=== PATIENT | male | born 1965 | race Caucasian/White ===

== ENCOUNTER 2016-10-30 09:05 | Emergency (ER) | payer MEDICARE ==
[2016-10-30 09:20] VITALS: BP 111/74
--- NOTE | 2016-10-30 10:09 | UC ---
Ear Complaint HPI - HPI Summary HPI Summary: Right ear pain, PND, and "white" productive cough for one week. Subjective fever three days ago. Patient is unemployed. PCP Fide MOSQUERA. [ End ] - History of Current Complaint Chief Complaint: UCRespiratory Stated Complaint: EAR PAIN Time Seen by Provider: 10/30/16 09:57 Hx Obtained From: Patient Onset/Duration: Gradual Onset Severity Initially: Mild Severity Currently: Moderate Associated Signs/Symptoms: Positive: URI Symptoms - Allergies/Home Medications Allergies/Adverse Reactions: Allergies Allergy/AdvReac Type Severity Reaction Status Date / Time No Known Allergies Allergy Verified 10/30/16 09:18 PMH/Surg Hx/FS Hx/Imm Hx Previously Healthy: Yes Endocrine History Of: Denies: Diabetes Cardiovascular History Of: Denies: Hypertension, Pacemaker/ICD Respiratory History Of: Denies: Asthma GI/ History Of: Denies: Gastroesophageal Reflux, Renal Disease Neurological History Of: Denies: TIA Psychological History Of: Denies: Depression - Surgical History Surgical History: Yes Surgery Procedure, Year, and Place: Lt KNEE. Rt WRIST - Family History Known Family History: Positive: Seizure Disorder Negative: Cardiac Disease, Hypertension, Diabetes - Social History Occupation: Employed Full-time Lives: With Family Alcohol Use: Occasionally Substance Use Type: None Smoking Status (MU): Former Smoker Type: Smokeless Tobacco Amount Used/How Often: 1/3 can per day Have You Smoked in the Last Year: Yes When Did the Patient Quit Smoking/Using Tobacco: ~08/01/16 - Immunization History Most Recent Influenza Vaccination: Not the 2015/2016 Season Review of Systems Constitutional: Negative Skin: Negative Eyes: Negative ENT: Sore Throat, Ear Ache, Nasal Discharge Respiratory: Negative Cardiovascular: Negative Gastrointestinal: Negative Genitourinary: Negative Motor: Negative Neurovascular: Negative Musculoskeletal: Negative Neurological: Negative Psychological: Negative All Other Systems Reviewed And Are Negative: Yes Physical Exam Triage Information Reviewed: Yes Appearance: Well-Appearing, No Pain Distress, Well-Nourished Vital Signs: Initial Vital Signs Temp 98.3 F 10/30/16 09:16 Pulse 62 10/30/16 09:16 Resp 16 10/30/16 09:16 BP 111/74 10/30/16 09:16 Pulse Ox 98 10/30/16 09:16 Vital Signs Reviewed: Yes Eye Exam: Normal ENT Exam: Normal ENT: Positive: Hearing grossly normal, Pharynx normal, Nasal congestion, Nasal drainage, TM bulging - right, TM dull - right. Negative: Pharyngeal erythema, TM red, Tonsillar swelling, Tonsillar exudate Dental Exam: Normal Neck exam: Normal Neck: Positive: 1 Respiratory Exam: Normal Cardiovascular Exam: Normal Abdominal Exam: Normal Musculoskeletal Exam: Normal Neurological Exam: Normal Psychological Exam: Normal Skin Exam: Normal Ear Complaint Course/Dx - Differential Dx/Diagnosis Differential Diagnosis/HQI/PQRI: Bronchitis, Otitis Externa, Otitis Media, Perforated TM Provider Diagnoses: Serous Otitis Media Right ear Discharge - Discharge Plan Condition: Good Disposition: HOME Prescriptions: Amoxicillin (*) [Amoxicillin 875 MG (*)] 875 mg PO BID #20 tab Patient Education Materials: Otitis Media (ED) Referrals: Deshawn Wheatley MD [Primary Care Provider] - 3 Days (if needed ) Additional Instructions: As we discussed please start Claritin in the AM with Flonase and consider Benadryl in the night time and if your symptoms worsen then please start amoxicillin.
== END 2016-10-30 10:20 | disposition home or self-care (01) ==
LOC: UCCORT 09:05
DX: H65.91 Unspecified nonsuppurative otitis media, right ear (principal); Z87.891 Personal history of nicotine dependence
CPT/HCPCS: 99212; G0463

== ENCOUNTER 2017-04-26 07:06 | Emergency (ER) | payer MEDICARE ==
[2017-04-26 07:18] VITALS: BP 129/78
--- NOTE | 2017-04-26 07:29 | UC ---
Throat Pain/Nasal Duy HPI - HPI Summary HPI Summary: sore throat x 2 days no fever, no chills, + cough, nasal congestion right ear pain x 2 weeks, no discharge, no hearing loss - History of Current Complaint Chief Complaint: UCRespiratory Stated Complaint: SORE THROAT BILATERAL EAR COMPLAINT Time Seen by Provider: 04/26/17 07:23 Hx Obtained From: Patient Onset/Duration: Gradual Onset, Lasting Days - 2, Still Present Severity: Moderate Cough: Nonproductive Associated Signs & Symptoms: Positive: Nasal Discharge. Negative: Dysphagia, FB Sensation, Drooling, Wheezing, Hoarseness, Sinus Discomfort, Fever, Rash - Allergies/Home Medications Allergies/Adverse Reactions: Allergies Allergy/AdvReac Type Severity Reaction Status Date / Time No Known Allergies Allergy Verified 04/26/17 07:13 Home Medications: Home Medications Cough Syrup Med PRN 04/26/17 [History] PMH/Surg Hx/FS Hx/Imm Hx Previously Healthy: Yes - Surgical History Surgical History: Yes Surgery Procedure, Year, and Place: Lt KNEE. Rt WRIST - Family History Known Family History: Positive: Seizure Disorder Negative: Cardiac Disease, Hypertension, Diabetes - Social History Alcohol Use: Occasionally Substance Use Type: None Smoking Status (MU): Former Smoker Type: Smokeless Tobacco Amount Used/How Often: 1/3 can per day Have You Smoked in the Last Year: Yes When Did the Patient Quit Smoking/Using Tobacco: ~08/01/16 - Immunization History Most Recent Influenza Vaccination: Not the 2015/2016 Season Review of Systems Constitutional: Negative Skin: Negative Eyes: Negative ENT: Sore Throat, Ear Ache Respiratory: Cough Cardiovascular: Negative Gastrointestinal: Negative Genitourinary: Negative Is Patient Immunocompromised?: No All Other Systems Reviewed And Are Negative: Yes Physical Exam Triage Information Reviewed: Yes Appearance: Well-Appearing, No Pain Distress, Well-Nourished Vital Signs: Initial Vital Signs Temp 97.5 F 04/26/17 07:14 Pulse 62 04/26/17 07:14 Resp 16 04/26/17 07:14 BP 129/78 04/26/17 07:14 Pulse Ox 99 04/26/17 07:14 Vital Signs Reviewed: Yes Eyes: Positive: Conjunctiva Clear ENT: Positive: Normal ENT inspection, Hearing grossly normal, Pharynx normal, Pharyngeal erythema, TMs normal. Negative: Nasal congestion, Nasal drainage, TM bulging, TM dull, TM red Neck exam: Normal Neck: Positive: Supple Respiratory: Positive: Chest non-tender, Lungs clear, Normal breath sounds Cardiovascular: Positive: RRR, No Murmur, Pulses Normal Skin Exam: Normal Throat Pain/Nasal Course/Dx - Differential Dx/Diagnosis Provider Diagnoses: viral pharyngitis. otalgia Discharge - Discharge Plan Condition: Stable Disposition: HOME Patient Education Materials: Pharyngitis (ED), Earache (ED) Referrals: Deshawn Wheatley MD [Primary Care Provider] - If Needed Additional Instructions: viral illness, no need for abx cont. with rest, increase fluid, Tylenol as needed for pain
== END 2017-04-26 07:34 | disposition home or self-care (01) ==
LOC: UCCORT 07:06
DX: J02.9 Acute pharyngitis, unspecified (principal); H92.03 Otalgia, bilateral; Z87.891 Personal history of nicotine dependence
CPT/HCPCS: 99211; G0463

== ENCOUNTER 2018-03-11 08:52 | Emergency (ER) | payer MEDICARE ==
--- OUTSIDE RECORDS SUMMARY | 2018-03-11 09:06 | XMS REPORT ---
:1965 External Reference #:[id number] Author Organization [employer] Address [address] [place] [address] [place] [address] Phone [phone] Care Team Providers Name Role Phone Deshawn Wheatley MD Primary Care Physician Unavailable Payers Type Date Identification Numbers Payment Provider Subscriber Medicare Primary Policy Number: [id number] Medicare Matthieu Matt PayID: [id number] [address] [place] [address] Commercial Expires: 2000 Policy Number: [id number] Storm Matt Group Number: [id number] [address] PayID: [id number] [place] [address] Workers Compensation Onset: 2015 Policy Number: [facility] Matthieu Matt [id number] 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 Active Onset: 01/23/2016 Complex partial seizure + impairment Caroline Oliveira M.D. Active consciousness at onset Family History Date Family Member(s) Problem(s) Comments General Prostate Cancer General Heart Disease Father Heart Disease Father Prostate Cancer Social History Type Date Description Comments Marital Status Single Lives With Girlfriend Occupation Disabled Cigarette Use Never Smoked Cigarettes ETOH Use Occasionally consumes alcohol Recreational Drug Use Denies Drug Use Smoking Patient has never smoked Daily Caffeine Consumes on average 2 cups of regular coffee per day Daily Caffeine Consumes on average 24oz of iced tea per day Daily Caffeine consumes 2oz of chocolate per day Exercise Type/Frequency Walks daily Allergies, Adverse Reactions, Alerts Date Description Reaction Status Severity Comments 06/27/2013 NKDA active Medications Medication Date Status Form Strength Qnty SIG Indications Ordering Provider Keppra 12/31 Active Tablets 500mg 30tab 1 tab by Filiberto /2015 s quintin Johnson M.D. once a day Phenytoin Sodium 11/20 Hx Capsules 100mg 270ca 4 cap by G40.909 Caroline Gonzalez ps mouth Roxanne, - every M.D. 01/21 No Active 10/23 Hx Unknown Medications /2015 - 11/20 Propranolol HCL 06/19 Hx Tablets 20mg 90tab 1 tab by Caroline Diaz /2011 s mouth 2-3 Roxanne, - times M.D. 10/22 as directed Primidone 06/19 Hx Tablets 50mg 60tab 1-2 tabs Caroline Diaz s by quintin Oliveira, - every day M.D. 10/22 at bedtime as directed Cyclobenzaprine Hx Tablets 10mg 30tab one po Unknown HCL /0000 s tid prn - spasm 10/22 Medications Administered in Office Medication Date Status Form Strength Qnty SIG Indications Ordering Provider Injection 12/06 Administered Injection Ze SLluvia Onabotulinumtoxin /2013 Lien Spence, 1 Unit M.D. Injection 08/30 Administered Injection Ze Zee Onabotulinumtoxin /2013 Lien Spence, 1 Unit M.D. Injection 03/22 Administered Injection Ze SLluvia Onabotulinumtoxin /2012 [place], A, 1 Unit M.D. Injection 12/07 Administered Injection Ze Zee Onabotulinumtoxin /2012 Lien Spence, 1 Unit M.DLluvia Injection 09/14 Administered Injection Ze BarrosLluvia Onabotulinumtoxin /2012 Lien Spence, 1 Unit M.D. Vital Signs Date Vital Result Comment 02/22/2018 Height 66 inches 5'6" Weight 188.00 lb Heart Rate 63 /min BP Systolic 128 mmHg BP Diastolic 84 mmHg Respiratory Rate 16 /min Pain Level 0 O2 % BldC Oximetry 96 % BMI (Body Mass Index) 30.3 kg/m2 02/11/2017 Height 66 inches 5'6" Weight 200.00 lb Heart Rate 95 /min BP Systolic 124 mmHg BP Diastolic 70 mmHg Respiratory Rate 17 /min O2 % BldC Oximetry 97 % ra BMI (Body Mass Index) 32.3 kg/m2 08/13/2016 Heart Rate 66 /min BP Systolic Sitting 118 mmHg BP Diastolic Sitting 80 mmHg Respiratory Rate 20 /min Pain Level 0 O2 % BldC Oximetry 98 % 01/23/2016 Height 66 inches 5'6" Weight 180.00 lb Heart Rate 64 /min BP Systolic Sitting 130 mmHg BP Diastolic Sitting 88 mmHg Respiratory Rate 14 /min BMI (Body Mass Index) 29.0 kg/m2 11/21/2015 Height 66 inches 5'6" Weight 189.00 lb Heart Rate 60 /min BP Systolic Sitting 118 mmHg BP Diastolic Sitting 86 mmHg Respiratory Rate 14 /min BMI (Body Mass Index) 30.5 kg/m2 11/10/2015 Height 66 inches 5'6" Weight 189.00 lb Heart Rate 72 /min BP Systolic Sitting 142 mmHg BP Diastolic Sitting 82 mmHg Respiratory Rate 14 /min BMI (Body Mass Index) 30.5 kg/m2 10/24/2015 Height 66 inches 5'6" Weight 189.00 lb Heart Rate 64 /min BP Systolic Sitting 124 mmHg BP Diastolic Sitting 80 mmHg Respiratory Rate 14 /min BMI (Body Mass Index) 30.5 kg/m2 03/25/2014 Weight 163.00 lb Heart Rate 60 /min BP Systolic Sitting 116 mmHg BP Diastolic Sitting 80 mmHg Respiratory Rate 12 /min Results Test Date Test Result H/L Range Note CBC Auto Diff 08/13/2016 White Blood Count 5.6 10^3/uL 3.5-10.8 Red Blood Count 5.06 10^6/uL 4.0-5.4 Hemoglobin 16.2 g/dL 14.0-18.0 Hematocrit 48 % 42-52 Mean Corpuscular Volume 94 fL 80-94 Mean Corpuscular Hemoglobin 32 pg High 27-31 Mean Corpuscular HGB Conc 34 g/dL 31-36 Red Cell Distribution Width 12 % 10.5-15 Platelet Count 166 10^3/uL 150-450 Mean Platelet Volume 8 um3 7.4-10.4 Abs Neutrophils 3.1 10^3/uL 1.5-7.7 Abs Lymphocytes 2.0 10^3/uL 1.0-4.8 Abs Monocytes 0.3 10^3/uL 0-0.8 Abs Eosinophils 0.1 10^3/uL 0-0.6 Abs Basophils 0 10^3/uL 0-0.2 Abs Nucleated RBC 0 10^3/uL Granulocyte % 56.1 % 38-83 Lymphocyte % 35.8 % 25-47 Monocyte % 5.7 % 1-9 Eosinophil % 2.1 % 0-6 Basophil % 0.3 % 0-2 Nucleated Red Blood Cells % 0.1 Comp Metabolic Panel 08/13/2016 Sodium 137 mmol/L 133-145 Potassium 4.5 mmol/L 3.5-5.0 Chloride 102 mmol/L 101-111 Co2 Carbon Dioxide 30 mmol/L 22-32 Anion Gap 5 mmol/L 2-11 Glucose 109 mg/dL High 70-100 Blood Urea Nitrogen 21 mg/dL 6-24 Creatinine 1.02 mg/dL 0.67-1.17 BUN/Creatinine Ratio 20.6 High 8-20 Calcium 9.4 mg/dL 8.6-10.3 Total Protein 6.8 g/dL 6.4-8.9 Albumin 4.4 g/dL 3.2-5.2 Globulin 2.4 g/dL 2-4 Albumin/Globulin Ratio 1.8 1-3 Total Bilirubin 0.90 mg/dL 0.2-1.0 Alkaline Phosphatase 41 U/L 34-104 Alt 33 U/L 7-52 Ast 21 U/L 13-39 Egfr Non- 76.4 >60 Egfr 98.3 >60 1 Laboratory test finding 12/26/2015 Phenytoin (Dilantin) 10.1 g/mL 10- 20 CBC W/Auto Diff 12/11/2015 White Blood Count 4.6 10^3/uL 3.5-10.8 Red Blood Count 4.69 10^6/uL 4.0-5.4 Hemoglobin 15.4 g/dL 14.0-18.0 Hematocrit 44 % 42-52 Mean Corpuscular Volume 95 fL High 80-94 Mean Corpuscular Hemoglobin 33 pg High 27-31 Mean Corpuscular HGB Conc 35 g/dL 31-36 Red Cell Distribution Width 13 % 10.5-15 Platelet Count 171 10^3/uL 150-450 Mean Platelet Volume 8 um3 7.4-10.4 Abs Neutrophils 2.7 10^3/uL 1.5-7.7 Abs Lymphocytes 1.6 10^3/uL 1.0-4.8 Abs Monocytes 0.3 10^3/uL 0-0.8 Abs Eosinophils 0 10^3/uL 0-0.6 Abs Basophils 0 10^3/uL 0-0.2 Abs Nucleated RBC 0 10^3/uL Granulocyte % 57.7 % 38-83 Lymphocyte % 34.2 % 25-47 Monocyte % 6.4 % 1-9 Eosinophil % 0.8 % 0-6 Basophil % 0.9 % 0-2 Nucleated Red Blood Cells % 0 CMP Panel 12/11/2015 Sodium 137 mmol/L 133-145 Potassium 4.6 mmol/L 3.5-5.0 Chloride 103 mmol/L 101-111 Co2 Carbon Dioxide 29 mmol/L 22-32 Anion Gap 5 mmol/L 2-11 Glucose 85 mg/dL 70-100 Blood Urea Nitrogen 16 mg/dL 6-24 Creatinine 0.89 mg/dL 0.67-1.17 BUN/Creatinine Ratio 18.0 8-20 Calcium 9.5 mg/dL 8.6-10.3 Total Protein 7.1 g/dL 6.4-8.9 Albumin 4.6 g/dL 3.2-5.2 Globulin 2.5 g/dL 2-4 Albumin/Globulin Ratio 1.8 1-3 Total Bilirubin 0.40 mg/dL 0.2-1.0 Alkaline Phosphatase 48 U/L 34-104 Alt 24 U/L 7-52 Ast 23 U/L 13-39 Egfr Non- 89.8 >60 Egfr 115.4 >60 2 Laboratory test finding 12/11/2015 Phenytoin (Dilantin) 4.0 g/mL Low 10- 20 1 Because ethnic data is not always readily available, this report includes an eGFR for both -Americans and non- Americans. The National Kidney Disease Education Program (NKDEP) does not endorse the use of the MDRD equation for patients that are not between the ages of 18 and 70, are , have extremes of body size, muscle mass, or nutritional status, or are non- or non-. According to the National Kidney Foundation, irrespective of diagnosis, the stage of the disease is based on the level of kidney function: Stage Description GFR(mL/min/1.73 m(2)) 1 Kidney damage with normal or decreased GFR 90 2 Kidney damage with mild decrease in GFR 60-89 3 Moderate decrease in GFR 30-59 4 Severe decrease in GFR 15-29 5 Kidney failure <15 (or dialysis) 2 Because ethnic data is not always readily available, this report includes an eGFR for both -Americans and non- Americans. The National Kidney Disease Education Program (NKDEP) does not endorse the use of the MDRD equation for patients that are not between the ages of 18 and 70, are , have extremes of body size, muscle mass, or nutritional status, or are non- or non-. According to the National Kidney Foundation, irrespective of diagnosis, the stage of the disease is based on the level of kidney function: Stage Description GFR(mL/min/1.73 m(2)) 1 Kidney damage with normal or decreased GFR 90 2 Kidney damage with mild decrease in GFR 60-89 3 Moderate decrease in GFR 30-59 4 Severe decrease in GFR 15-29 5 Kidney failure <15 (or dialysis) Procedures Date CPT Code Description Status 11/13/2015 20649 Electroencephalogram (EEG) Extended Monitoring 41-60 Completed Minutes 11/03/2015 74403 EEG Recording Awake & Drowsy Completed 12/06/2013 09246 Chemodenervation Of Neck Muscles Excluding Larynx, Completed Unilateral 08/30/2013 65856 Chemodenervation Of Neck Muscles Excluding Larynx, Completed Unilateral 03/22/2013 53132 Destruction W/Neurolytic Agent,Neck Muscles Completed 12/07/2012 14280 Destruction W/Neurolytic Agent,Neck Muscles Completed 09/14/2012 95505 Destruction W/Neurolytic Agent,Neck Muscles Completed Encounters Type Date Location Provider CPT E/M Dx Office Visit 02/11/2017 Aeysha Oliveira, 43433 G40.209 10:00a [facility] Of M[facility]. [employer] Office Visit 08/13/2016 Ayesha Oliveira, 98404 G40.209 8:45a [facility]rologic [facility] Of M[facility]D. [employer] Office Visit 11/21/2015 Ayesha Oliveira, 71042 G40.909 10:00a [facility] Of M[facility]. [employer] Office [place]/10[place] 43166 G24.3 10:00a Neurologic Serv Of M.D. [employer] R55 Office Visit 10/24/2015 11:30a Ayesha Oliveira, 50888 G24.3 Neurolog[facility] Of [employer] M.D. R55 Office Visit 03/25/2014 9:45a Ayesha Oliveira, 47347 333.83 Neurologic [facility] Of [employer] M.D. 333.1 Office Visit 09/17/2013 9:45a Nirav/Agueda Oliveira, 06197 333.1 Neurologic Serv Of [employer] M.D. 333.83 Office Visit 07/11/2013 3:40p Neurosurgery Services Melvin Yuan, 81938 721.0 Of [employer] AT [facility] 722.10 Office Visit 06/27/2013 10:00a Neurosurgery Services Melvin Yuan, 39678 722.71 Of [employer] AT [facility] 722.10 Office Visit 05/09/2013 4:00p Ayesha Oliveira, 82842 333.83 Neurologic Serv Of [employer] M.D. 333.1 Office Visit 12/07/2012 2:00p Ayesha Spence 47250 333.83 Neurologic Serv Of [employer] M.D. Office Visit 12/04/2012 2:15p Ayesha Oliveira, 63299 333.83 Neurologic Serv Of [employer] M.D. 333.1 Office Visit 10/12/2012 12:00p Ayesha Barros. Bebe, 73928 333.83 Neurologic Serv Of [employer] M.D. Office Visit 10/02/2012 10:00a [place]/Agueda Oliveira, 65407 333.83 Neurologic Serv Of [employer] M.D. Office Visit 09/14/2012 3:00p [place]/Agueda Spence, 74019 333.83 Neurologic Serv Of [employer] M.D. Office Visit 07/06/2012 2:45p [place]/Agueda Spence, 47694 333.83 Neurologic Serv Of [employer] M.D. Office Visit 06/19/2012 2:15p [place]/Agueda Oliveira, 60100 333.1 Neurologic Serv Of [employer] M.D. Office Visit 03/30/2012 1:00p [place]/Agueda Oliveira, 48747 333.1 Neurologic Serv Of [employer] M.D. 333.83 Plan of Care Future Appointment(s):02/28/2019 8:30 am - Filiberto Johnson M.D. at [facility]02/22/2018 - Filiberto Johnson M.D.G40.209 Local- rel symptc epi w cmplx prt seiz,not ntrct,w/o stat [id number] Syncope and collapse
[2018-03-11 09:12] VITALS: BP 127/81
--- NOTE | 2018-03-11 09:16 | UC ---
Lower Extremity/Ankle HPI - HPI Summary HPI Summary: kick starter on 4 reeves "kicked back" into his R foot yesterday causing pain and swelling. - History of Current Complaint Stated Complaint: LEFT FOOT INJURY 1 DAY Time Seen by Provider: 03/11/18 09:10 Hx Obtained From: Patient Onset/Duration: Sudden Onset Aggravating Factor(s): Standing, Ambulation Alleviating Factor(s): Nothing Able to Bear Weight: Yes - partial - Allergies/Home Medications Allergies/Adverse Reactions: Allergies Allergy/AdvReac Type Severity Reaction Status Date / Time No Known Allergies Allergy Verified 03/11/18 09:12 PMH/Surg Hx/FS Hx/Imm Hx - Additional Past Medical History Additional PMH: tremor Neurological History: Seizures - Surgical History Surgical History: Yes Surgery Procedure, Year, and Place: Lt KNEE. Rt WRIST - Family History Known Family History: Positive: Seizure Disorder Negative: Cardiac Disease, Hypertension, Diabetes - Social History Occupation: Disabled Lives: With Family Alcohol Use: Occasionally Substance Use Type: None Smoking Status (MU): Former Smoker Type: Smokeless Tobacco Amount Used/How Often: 1/3 can per day Have You Smoked in the Last Year: Yes When Did the Patient Quit Smoking/Using Tobacco: ~08/01/16 - Immunization History Most Recent Influenza Vaccination: Not the 2015/2016 Season Vaccination Up to Date: Yes Review of Systems Constitutional: Negative Skin: Negative Eyes: Negative ENT: Negative Respiratory: Negative Cardiovascular: Negative Gastrointestinal: Negative Genitourinary: Negative Motor: Negative Neurovascular: Negative Musculoskeletal: Other: - pain/swelling/bruising R foot Neurological: Negative Psychological: Negative Is Patient Immunocompromised?: No All Other Systems Reviewed And Are Negative: Yes Physical Exam Triage Information Reviewed: Yes Appearance: Well-Appearing Vital Signs Reviewed: Yes Eyes: Positive: Conjunctiva Clear ENT: Positive: Normal ENT inspection Neck: Positive: Supple Respiratory: Positive: Lungs clear, Normal breath sounds Cardiovascular: Positive: RRR, No Murmur Abdomen Description: Positive: Nontender, No Organomegaly, Soft Bowel Sounds: Positive: Present Musculoskeletal: Positive: Other: - RLE: hip. knee, achilles and ankle are atraumatic. Arch and plantar R fott is swollen, bruised and tender. Toes have full s/v/m function. Neurological: Positive: Alert, Other: - fine tremor Psychological: Positive: Age Appropriate Behavior Skin Exam: Normal Diagnostics - Radiology No standard instances Radiology Interpretation Completed By: Radiologist - IMPRESSION: NO FRACTURE IS SEEN, IF THE PATIENT'S SYMPTOMS PERSIST RECOMMEND FOLLOW-UP IMAGING. Lower Extremity Course/Dx - Course Course Of Treatment: no concern for fx, dislocation or infection. bruising arch/ planter foot and plantar fascia injury. will kranthi, crutch and refer to orthopedics - Differential Dx/Diagnosis Provider Diagnoses: Contusion arch and plantar fascia R foot. Plantar fasciitis R foot from trauma Discharge - Sign-Out/Discharge Documenting (check all that apply): Patient Departure - Discharge Plan Condition: Stable Disposition: HOME Prescriptions: Naproxen [Naprosyn 500 mg tab] 500 mg PO BID #10 tablet Patient Education Materials: Plantar Fasciitis (ED), Foot Contusion (ED) Referrals: Deshawn Wheatley MD [Primary Care Provider] - If Needed Mele Juarez MD [Medical Doctor] - As Soon As Possible Additional Instructions: KRANTHI AND CRUTCHES UNTIL CLEARED - Billing Disposition and Condition Condition: STABLE Disposition: Home
--- NOTE | 2018-03-11 10:20 | RAD ---
INDICATION: Right foot injury. TECHNIQUE: 3 views of the right foot were obtained. FINDINGS: There is medial soft tissue swelling. The bones are normal alignment. No fracture is seen. 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 IMPRESSION: NO FRACTURE IS SEEN, IF THE PATIENT'S SYMPTOMS PERSIST RECOMMEND FOLLOW-UP IMAGING.
== END 2018-03-11 10:55 | disposition home or self-care (01) ==
LOC: UCCORT 08:52
DX: S90.31XA Contusion of right foot, initial encounter (principal); W31.89XA Contact with other specified machinery, initial encounter; Y93.89 Activity, other specified; Y92.9 Unspecified place or not applicable; Z87.891 Personal history of nicotine dependence
CPT/HCPCS: 99213; G0463

== ENCOUNTER 2019-02-19 08:25 | Emergency (ER) | payer MEDICARE, OTHER ==
[2019-02-19 08:45] VITALS: BP 122/86
--- NOTE | 2019-02-19 08:57 | UC ---
Skin Complaint HPI - HPI Summary HPI Summary: Pt presents with c/o sudden onset fo painful pustular rash that encircles his distal neck and on left lower medial extremity. Pt thought he had a "heat rash " and place d cool compress on the rash over the weekend but he states that rash worsened after that. - History of Current Complaint Chief Complaint: [facility]CS[facility] Time Seen by Provider: 02/19/19 08:35 Stated Complaint: SKIN CONCERN Hx Obtained From: Patient Onset/Duration: Sudden Onset, Still Present, Other - improving but still painful Skin Exposure Onset/Duration: Days Ago - 2 Timing: Constant Onset Severity: Mild Current Severity: Mild Pain Intensity: 6 Location: Discrete - around neck and left lower extremity Character: Pain, Redness, Raised, Painful Aggravating Factor(s): Touch Alleviating Factor(s): Nothing Associated Signs & Symptoms: Positive: Rash - Allergy/Home Medications Allergies/Adverse Reactions: Allergies Allergy/AdvReac Type Severity Reaction Status Date / Time No Known Allergies Allergy Verified 02/19/19 08:38 PMH/Surg Hx/FS Hx/Imm Hx Previously Healthy: Yes - Surgical History Surgical History: Yes Surgery Procedure, Year, and Place: Lt KNEE arthroscopic. Rt WRIST broken had plates and screws - Family History Known Family History: Positive: Seizure Disorder Negative: Cardiac Disease, Hypertension, Diabetes - Social History Occupation: Disabled Lives: With Family Alcohol Use: Occasionally Substance Use Type: None Smoking Status (MU): Never Smoked Tobacco Type: Smokeless Tobacco Amount Used/How Often: 1/3 can per day Have You Smoked in the Last Year: Yes When Did the Patient Quit Smoking/Using Tobacco: ~08/01/16 - Immunization History Most Recent Influenza Vaccination: Not the 2015/2016 Season Vaccination Up to Date: Yes Review of Systems All Other Systems Reviewed And Are Negative: Yes Constitutional: Positive: Negative Skin: Positive: Rash Eyes: Positive: Negative ENT: Positive: Negative Respiratory: Positive: Negative Cardiovascular: Positive: Negative Gastrointestinal: Positive: Negative Genitourinary: Positive: Negative Motor: Positive: Negative Neurovascular: Positive: Negative Musculoskeletal: Positive: Negative Neurological: Positive: Negative Psychological: Positive: Negative Is Patient Immunocompromised?: No Physical Exam Triage Information Reviewed: Yes Appearance: Well-Appearing Vital Signs: Initial Vital Signs Temp 97.5 F 02/19/19 08:39 Pulse 58 02/19/19 08:39 Resp 17 02/19/19 08:39 BP 122/86 02/19/19 08:39 Pulse Ox 100 02/19/19 08:39 Vital Signs Reviewed: Yes Eye Exam: Normal ENT Exam: Normal Dental Exam: Normal Neck exam: Normal Respiratory Exam: Normal Respiratory: Positive: No respiratory distress Cardiovascular Exam: Normal Musculoskeletal Exam: Normal Neurological Exam: Normal Psychological Exam: Normal Skin: Positive: Rashes - several areas around base of neck in various stages of healing some, flat and dry, few with pustular raised "bumps", also on left medial leg. Course/Dx - Differential Diagnoses - Skin Complaint Differential Diagnoses: Contact Dermatitis - Diagnoses Provider Diagnosis: Acute maculopapular rash Discharge - Sign-Out/Discharge Documenting (check all that apply): Patient Departure All imaging exams completed and their final reports reviewed: No Studies - Discharge Plan Condition: Stable Disposition: HOME Prescriptions: Cetirizine* [ZyrTEC 10 MG TAB*] 10 mg PO DAILY #5 tab predniSONE TAB* [Deltasone 10 MG TAB*] 30 mg PO DAILY #12 tab Patient Education Materials: Acute Rash (ED) Referrals: Deshawn Wheatley MD [Primary Care Provider] - As Soon As Possible - Billing Disposition and Condition Condition: STABLE Disposition: Home
== END 2019-02-19 09:04 | disposition home or self-care (01) ==
LOC: UCCORT 08:25
DX: R21 Rash and other nonspecific skin eruption (principal); F17.290 Nicotine dependence, other tobacco product, uncomplicated
CPT/HCPCS: 99212; G0463